=== PATIENT | male | born 1950 | race Caucasian/White ===

== ENCOUNTER 2016-04-05 06:53 | Day surgery (SDC) | payer MEDICARE ==
[~2016-04-05] VITALS: Ht 165.1 cm; Wt 76.8 kg
[~2016-04-05 06:53] MED LIST: ASPI-973 PO; ATOR80TA77 PO; IBUP-1827 PO; LANS15TA3 PO; LOSA25TA21 PO; METO25TA6 PO
[2016-04-05] MEDS ORDERED: MetoCLOpramide 5 mg/mL 2 mL Inj ONE (06:54)
[2016-04-05] MEDS ORDERED: Ondansetron 2 mg/mL 2 mL Inj ONE (06:54)
[2016-04-05] MEDS ORDERED: Propofol 10,000 mCg/mL 20 mL Inj ONE (06:54)
[2016-04-05] MEDS: Lactated Ringer's 1,000 ML IV SCH ×2 (07:04→09:32)
[2016-04-05 07:15] VITALS: BP 130/71; PULSE 49; RESP 18; O2SAT 96
[2016-04-05] MEDS ORDERED: Lactated Ringer's 1,000 ML IV SCH ×2 (08:45→09:12)
[2016-04-05] MEDS ORDERED: Dexamethasone 4 mg/mL Inj IVPUSH PRN ×2 (08:45→09:15)
[2016-04-05] MEDS ORDERED: HYDROmorphone 1 mg/mL Inj IVPUSH PRN ×2 (08:45→09:15)
[2016-04-05] MEDS ORDERED: Labetalol 5 mg/mL 4 mL Inj IV PRN (08:45)
[2016-04-05] MEDS ORDERED: Lactated Ringer's 500 ML IV PRN ×2 (08:45→09:12)
[2016-04-05] MEDS ORDERED: MetoCLOpramide 5 mg/mL 2 mL Inj IVPUSH PRN ×2 (08:45→09:15)
[2016-04-05] MEDS ORDERED: Ondansetron 2 mg/mL 2 mL Inj IVPUSH PRN ×2 (08:45→09:15)
[2016-04-05] MEDS ORDERED: Phenylephrine 10,000 mCg/mL Inj IVPUSH PRN ×2 (08:45→09:15)
[2016-04-05] MEDS ORDERED: EPHEDrine Sulfate 50 mg/mL Inj IVPUSH PRN ×2 (08:45→09:15)
[2016-04-05] MEDS ORDERED: fentaNYL-PF 50 mCg/mL 2 mL Inj IVPUSH PRN ×2 (08:45→09:15)
--- NOTE | 2016-04-05 08:45 | PCM.HPANE ---
Patient Data Surgeon Admitting Provider: Attending Provider:González Diane MD Primary Care Physician:Jaron Garcias PA-C Other Provider:Vanna Ray Anesthesia Reason for Visit Left Neck Follicular Lymphoma Ht/WT & BMI Height (Feet): 5 Height (Inches): 5 Weight (Kilograms): 76.8 Body Mass Index 28.00 Allergies Coded Allergies: No Known Allergies (Unverified Allergy, Unknown, 09/23/14) Past Anesthesia History Anesthesia History: Denies:: Abnormal Airway, Anesthesia Reactions, Difficult Intubation, Fam Anesthesia Reaction, Fam Malignant Hypertherm, Malignant Hyperthermia Diabetes History Hx Diabetes?: No MRSA MRSA: No Medications Blood Thinner: Aspirin Hypertension Medication: Yes Home Meds Incl Beta Vu: Yes (METOPROLOL) Date Beta Vu Taken: Apr 05, 2016 Time Beta Vu Taken: 0600 Reported Medications Lansoprazole ODT (Prevacid ODT)15 Mg Plohnq37 Mg PO DAILY Ref 0 04/03/16 Aspirin 81 Mg Qtuilu94 Mg PO DAILY Ref 0 04/03/16 Metoprolol Tartrate 25 Mg Xxlkci22 Mg PO BID 30 Days Ref 0 09/20/14 Losartan Potassium 25 Mg Aavowt93 Mg PO DAILY 09/20/14 Ibuprofen 600 Mg Shpoln222 Mg PO TID PRN For Pain Ref 0 09/20/14 Atorvastatin Calcium 80 Mg Iqlvqk91 Mg PO DAILY 30 Days Ref 0 09/20/14 Discontinued Reported Medications Ranitidine (Zantac)150 Mg Kbinwu619 Mg PO DAILY 07/01/15 Aspirin (Aspir 81)81 Mg Tablet.dr81 Mg PO DAILY Ref 0 09/20/14 History HEENT History: Positive for:: Hearing Problem Denies:: Abnormal Airway Cataracts Difficult Intubation Dysphagia Glaucoma Sinus Problem TMJ Hx of Heart Problems?: Yes Cardiovascular History: Positive for:: Coronary Artery Disease Hypertension (hyperlipidemia) Denies:: AICD Chest Pain Heart Murmur Irregular Heartbeat Pacemaker Rheumatic Fever Thrombophlebitis Valvular Heart Disease Hx of Respiratory Problem?: Yes Respiratory History: Positive for:: Pneumonia (mild case during chemo) Use of C-PAP Machine (doesnt use , + GABRIEL) Denies:: Asthma COPD Chest Surgery Cough Dyspnea Emphysema Hemoptysis Oxygen Administration Pulmonary Embolism Tuberculosis Hx Neurologic Problems?: No Neurological History: Denies:: Alzheimer's Disease CVA Dementia Dizziness Headaches Multiple Sclerosis Parkinson's Disease Seizures Hx of GI Problems?: Yes Gastrointestinal History: Positive for:: Heartburn Denies:: Cirrhosis Diverticulitis Gall Bladder Disease Gastroesphageal Reflux Gastrointestinal Bleeding Hepatitis Hiatal Hernia Rectal Bleeding Hx of Problems?: No Genitourinary History: Denies:: Kidney Stones Urinary Tract Infection Male Hx: Positive for:: Prostate Problems (hx of prostatitis) Skin History: Positive for:: History Skin Disorders? (left neck lymph node current admission problem) Hx Musculoskeletal Problems?: No Musculoskeletal History: Denies:: Back Injury Joint Replacement Musculoskeletal Trauma Osteoarthritis Systemic Lupus Hx of Psycho/Social Problems?: No Hx Surgeries?: Yes (right ankle surgery) Hx Any Other Health Problems?: Yes Other History: Positive for:: Cancer (non hodgkins lymphoma) Denies:: Endocrine Disease Hospitalization Thyroid Disease History Blood Transfusions: Positive for:: Accept Blood Products? Denies:: Blood Transfusions Hx Diabetes: No Hx Alcohol Use: YesAlcoholic Drinks Per Day: once weeklyHx Substance Use: No Smoking Status: Current Every Day Smoker Light Tobacco Smoker Have You Smoked inLast 12 mo: Yes Stop/Bang Treated for Sleep Apnea?: Yes Do You Have a CPAP Machine?: Yes S-Snoring: Do You Snore Loudly: Yes T-Tired: feel tired, fatigued: No O-Obsered: Observed not breath: Yes P-Blood Pressure: treated: Yes B- Body Mass Index > 35 kg/m2: No A- Age over 50: Yes N- Neck Large Circumference: No G- Gender Male: Yes GABRIEL Total Score: 5 GABRIEL Risk Assessment: High Risk, =/>3 Yes Risk Assessment Category Category 1A: Patient has history of documented sleep apnea, and HAS NOT received any narcotic, sedative or anesthesia administration during this stay. Category 1B: Patient has history of documented sleep apnea, and HAS received any narcotic , sedative or anesthesia administration during this stay Category 2: Patient has SUSPECTED Obstructive Sleep Apnea, and HAS received any narcotic , sedative or anesthesia administration during this stay. Category 3: Patient has SUSPECTED Obstructive Sleep Apnea and HAS NOT received narcotic, sedative or anesthesia administration during this stay. Category 4: Outpatient in Procedural Areas with known sleep apnea or who screen positive for High Risk via the STOP/BANG questionnaire. Exam Exam Vital Signs Vital Signs Date Time Temp Pulse Resp B/P Pulse Ox O2 Delivery O2 Flow Rate FiO2 04/05/16 07:15 35.7 49 18 130/71 96 Room Air General Appearance: Oriented X3 HEENT/AIRWAY: MP 2 Lungs: Normal Air Movement Heart: Regular Rate/Rhythm Meds/Labs/Diagnostics Admission Meds Current Medications Lactated Ringer's (Lr) 1,000 ml @ 120 mls/hr Q8H20M IV Last administered on t 07:04; Start 04/05/16 at 05:00; Stop 04/05/16 at 13:19 Plan Impression Patient chart reviewed, patient interviewed and anesthestic plan with risks, benefits, and alternatives discussed, and informed consent obtained. NPO Status: 04/05/16 SIP ASA Physical Status: ASA3 Severe Disease Anesthetic Plan: GA Bene/Risks/Altern/Consents: Yes HP Complete Prior to Induction: Yes Les Coronel MD Apr 05, 2016 08:45
[2016-04-05] MEDS ORDERED: Bupivacaine-MPF 0.5% W/EPI 30 mL Inj INFILTRATE ONE (09:16)
[2016-04-05] MEDS ORDERED: HYDROcodone-APAP 5-325 mg Tablet PO PRN (09:40)
[2016-04-05 09:43] VITALS: BP 114/87; PULSE 54; RESP 15; O2SAT 99
[2016-04-05 09:50] VITALS: BP 125/80; PULSE 52; RESP 13; O2SAT 96
--- NOTE | 2016-04-05 09:54 | OP ---
[address] [address] OPERATIVE REPORT PATIENT: RED THOMSON : 1950 MR#: [id number] ADMIT: 04/05/2016 JOB ID: [id number] DATE OF SURGERY: 04/05/2016 ANESTHESIA: General. PREOPERATIVE DIAGNOSIS(ES): Follicular lymphoma. POSTOPERATIVE DIAGNOSIS(ES): Follicular lymphoma. OPERATIVE PROCEDURE: Left cervical lymph node excisional biopsy. SURGEON: Dr. González Diane. COLLECTION DEVELOPMENT LIBRARIAN: ABEL Bryant. COMPLICATIONS: None. ESTIMATED BLOOD LOSS: Minimal. CONDITION: Satisfactory. SPECIMEN: Left cervical lymph node. FINDINGS: The enlarged left cervical lymph node was easily identified and removed in entirety. The specimen was sent both for permanent and flow cytometry. INDICATIONS/SIGNIFICANT HISTORY: The patient is a 65-year-old man with a history of low-grade follicular lymphoma with localized recurrence who has had progressive adenopathy. Decision is being made to start treatment. It was advised to obtain a repeat biopsy to ensure that there had not been transformation. OPERATIVE TECHNIQUE: The patient was taken to the operating room and placed in the supine position. General anesthesia was administered. The left neck was prepped and draped in a standard surgical fashion. A procedural pause was performed. Local anesthetic was injected. I then made an incision in line with the sternocleidomastoid. Dissection was carried down through skin, subcutaneous tissue and platysma. The enlarged lymph node was then encountered. I circumferentially dissected this free using the LigaSure Precise device. The lymph node was removed entirely and sectioned for the specimen. The platysma was then reapproximated with interrupted 3-0 Vicryl. Skin was closed using running 4-0 Monocryl. Dermabond was applied. The entire procedure was well tolerated without complication.
[2016-04-05 10:00] VITALS: BP 127/78; PULSE 60; RESP 13; O2SAT 97
[2016-04-05 10:08] VITALS: BP 134/77; PULSE 58; RESP 14; O2SAT 98
[2016-04-05 10:38] VITALS: BP 123/88; PULSE 44; RESP 16; O2SAT 98
--- NOTE | 2016-04-06 12:54 | PCM.ANEP1 ---
Post Anesthesia Phase 1 PACU Phase 1 Assessment Anesthetic Administered: GA Level of Alertness: Awake, talking Pain: No Nausea or Vomiting: No Oxygen Delivery: Room Air Lungs: Normal Air Movement Les Coronel MD Apr 06, 2016 12:54
--- NOTE | 2016-04-06 12:55 | PCM.ANEP2 ---
Post Anesthesia Evaluation ASA/CMS Post Anesthesia VS in Patient's Normal Range?: Yes Resp Stable; Airway Patent?: Yes CV Function & Hydration Stable: Yes Mental Status Recovered?: Yes Pain control Satisfactory?: Yes N/V Control Satisfactory?: Yes Les Coronel MD Apr 06, 2016 12:54
--- NOTE | 2016-04-11 11:30 | PATH ---
SURGICAL PATHOLOGY Attending Physician:González Diane MD CASE STATUS: Signed Out PATIENT NAME: RED THOMSON PID: [id number] : 1950 DATE COLLECTED:04/05/2016 16:56 SPECIMEN: Lymph Node, Biopsy CLINICAL HISTORY: LEFT CERVICAL LYMPH NODE FINAL DIAGNOSIS: Left Cervical Lymph Node, Excisional Biopsy: Follicular lymphoma, low-grade (grade 1-2 of 3) with a predominantly follicular architecture; please see comment. ICD10 C85.9 NOTE: The enlarged lymph node is totally effaced by an infiltrate of predominantly small to intermediate-sized atypical lymphocytes consistent with centrocytes. Based upon the stains performed to identify follicular dendritic cells, the infiltrate is comprised of variably sized follicles, some of which appear fused. No evidence of a diffuse proliferation of atypical lymphocytes is identified, although there is a minor diffuse architecture of the neoplastic lymphocytes around the neoplastic follicles. The Ki-67 labeling index is higher in this biopsy than in the previous biopsy from 09/24/2014 ([id number]). This is compatible with a slight progression in the lymphoma, but there is no evidence of a diffuse large B-cell lymphoma. GROSS DESCRIPTION: The specimen is received in formalin, labeled with the patient's name, sublabeled as left cervical lymph node for perm. and consists of a lymph node (2.2 x 1.8 x 1.8 cm). Section code: (A-D) one lymph node, serially sectioned. Specimen entirely submitted. 04/05/16 JM MICRO DESCRIPTION: Sections of the enlarged left cervical lymph node show complete effacement of the normal [place] architecture by a vaguely nodular infiltrate of atypical lymphocytes in which the vast majority is of small intermediate size with slight nuclear irregularity consistent with centrocytes. Rare larger atypical lymphocytes consistent with centroblasts are present, but these are only estimated to be only about 5-10 per high-power field. Immunohistochemistry is performed for further evaluation with the following results: IMMUNOHISTOCHEMISTRY STAINRESULT BCL2:Uniformly positive. CD79A:Uniformly positive. PAX5:Uniformly positive. CD3:Positive in only scattered small lymphocytes. CD21:Positive in follicular dendritic cells within atypical lymphoid follicles. CD23:Variably positive within the follicular dendritic cells within atypical follicles. Ki-67:Positive in up to 35% of atypical lymphocytes. ICD-9 CODES: CPT CODES: 1: 18669, 71662, 69312, 97706, 03904, 31065, 58470, 22395, 90445 PROCEDURE/ADDENDA: Addendum SPI Addendum Diagnosis Immunohistochemistry for CD20 was requested by Dr. Conde. in order to estimate the number of tumor cells positive for CD20. This immunohistochemical stain shows patchy positive staining, which is predominantly of perifollicular lymphocytes and is estimated to be present on about 10% of the total tumor cells. Please note that the flow cytometric analysis on a portion of the same biopsy showed only 5.6% positive expression of CD20 on the CD10 positive abnormal B cells. Thus, the difference in the estimate of CD20 positivity is most likely due to sampling within the tumor, as well as the flow cytometric analysis showing positive staining of only the CD10 positive tumor cells. 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 Results-Comments Flow Comment: Flow cytometric analysis of cells harvested from the left cervical lymph node biopsy shows an abnormal mature B-cell population expressing CD19(dim), CD22, CD10, CD38(subset) and moderately intense surface immunoglobulin restricted to kappa light chain. The abnormal B cells lack CD5, CD23, CD103 and CD11c. Of note, only 5.7% of the abnormal B cells express CD20 which likely reflects downregulation of CD20 by prior treatment with rituximab. Absence of CD20 on the abnormal B cells was also identified in the prior biopsy of a right submandibular lymph node in 09/23/2014 (see prior report [id number]). No abnormal T cell, myeloid, monocyte or blast population is identified. In summary, the flow cytometric findings are consistent with a kappa-restricted mature B-cell lymphoma. Expression of CD10 is consistent with a follicle center phenotype, however, definitive lymphoma subclassification and grading depends upon correlation of the flow cytometric findings with the biopsy morphology and immunohistochemistry. Immunohistochemistry for CD20 will also be performed on the biopsy tissue to confirm the markedly diminished CD20 expression on the neoplastic B cells. The findings relative to diminished CD20 expression was discussed with Dr. Conde by Dr. Borden on 04/16/2016. Electronically Signed Out Umair Borden MD, PhD Electronically Signed Out Umair Borden MD, PhD [facility] [address], [place] [address] Technical component performed at [facility], [facility] [address], [place], [address]
[2016-07-06] MEDS ORDERED: RANI150T11 PO (14:37)
== END 2016-04-05 23:59 | disposition home or self-care (01) ==
LOC: SAS 06:53
PROVIDERS: ATTEND General Practice
DX: C82.90 Follicular lymphoma, unspecified, unspecified site (principal); F17.210 Nicotine dependence, cigarettes, uncomplicated; Z79.82 Long term (current) use of aspirin; Z79.899 Other long term (current) drug therapy
CPT/HCPCS: 21550; J2405; J2765; J7120